=== PATIENT | male | born 1965 | race Asian ===

== ENCOUNTER 2025-01-05 09:58 | Emergency (ER) | payer MEDICAID, MEDICARE ==
[~2025-01-05] VITALS: Ht 170.2 cm; Wt 78.0 kg
[2025-01-05 10:02] VITALS: O2SAT 99
[2025-01-05] MEDS ORDERED: CEPH500C2 MT (11:38)
[2025-01-05 11:47] LABS: CLARITY URINE CLOUDY (CLEAR); COLOR URINE YELLOW (YELLOW); GLUCOSE URINE NEGATIVE (NEGATIVE); KETONES URINE NEGATIVE (NEGATIVE); LEUKOCYTE ESTERASE URINE 3+ (NEGATIVE); NITRITE URINE POSITIVE (NEGATIVE); OCCULT BLOOD URINE 1+ (NEGATIVE); PH URINE 5.5 (4.5-8.0); PROTEIN URINE TRACE (NEGATIVE); SPECIFIC GRAVITY URINE 1.015 (1.005-1.030); UROBILINOGEN URINE 0.2 E.U./dL (0.2-1.0)
[2025-01-05 12:00] VITALS: BP 110/81; PULSE 94; RESP 18; TEMP 36.9; O2SAT 99
[2025-01-05 12:02] LABS: BACTERIA URINE 2+; RBC URINE 0-2 /hpf (0-2); SQUAMOUS EPITHELIAL CELL URINE RARE /lpf (RARE/1+); WBC URINE TNTC /hpf (0-2); YEAST URINE NONE SEEN
== END 2025-01-05 12:07 | disposition home or self-care (01) ==
LOC: ER 09:58
DX: Z46.6 Encounter for fitting and adjustment of urinary device (principal); N30.20 Other chronic cystitis without hematuria; G82.20 Paraplegia, unspecified; N30.00 Acute cystitis without hematuria; K74.60 Unspecified cirrhosis of liver; Z85.05 Personal history of malignant neoplasm of liver; Z91.013 Allergy to seafood
CPT/HCPCS: 99284; 81003; 87086; 87186; 87077; 51702; A6449; 99283